=== PATIENT | male | born 1990 | race Caucasian/White ===

== ENCOUNTER 2017-11-30 23:42 | Emergency (ER) | payer SELFPAY ==
[~2017-11-30] VITALS: Ht 190.5 cm; Wt 90.7 kg
[~2017-11-30 23:42] MED LIST: DIBU28OI RC; HYDR1TAB10 PO; HYDR30CR61 RC; LEVO500T59 PO; METR500T PO
--- NOTE | 2017-11-30 23:45 | ED.ADGEN ---
Past History Past Medical History: No Pertinent History, Other Past Surgical History: Tonsillectomy Smoking: Cigarettes Alcohol Use: Occasionally Drug Use: None Adult General Chief Complaint Chief Complaint ".. I was just standing around and got this sharp pain in my chest... it been constant the last hour and half... not had anything like this before..." HPI HPI Patient is a 27 year old male who presents with above hx and complaints of central pleuritic chest pain. Patient states the pain is been constant for the last hour and a half. No radiation. Patient does smoke. No history of prior DVTs or pulmonary embolisms. No history of prior cardiac disorders. There is a strong family history of strokes and MIs any family [age 40. No recent travel. No specific ill contacts. Review of Systems Review of Systems Constitutional: Denies fever or chills [] Eyes: Denies change in visual acuity, redness, or eye pain [] HENT: Denies nasal congestion or sore throat [] Respiratory: Denies cough or shortness of breath [] Cardiovascular: No additional information not addressed in HPI [] GI: Denies abdominal pain, nausea, vomiting, bloody stools or diarrhea [] : Denies dysuria or hematuria [] Musculoskeletal: Denies back pain or joint pain [] Integument: Denies rash or skin lesions [] Neurologic: Denies headache, focal weakness or sensory changes [] Endocrine: Denies polyuria or polydipsia [] All other systems were reviewed and found to be within normal limits, except as documented in this note. Family History Family History Family hx of [place], CVA in 40's Current Medications Current Medications Current Medications Medications (Trade) Dose Ordered Sig/Bret Start Time Stop Time Status Last Admin Dose Admin Aspirin (Children'S Aspirin) 324 mg 1X ONCE 12/01/17 00:15 12/01/17 00:16 DC 12/01/17 00:24 324 MG Enoxaparin Sodium (Lovenox 100mg Syringe) 90 mg 1X ONCE 12/01/17 02:15 12/01/17 02:16 UNV Info (Do NOT chart on this entry -- for MONITORING) 1 each PRN DAILY PRN 12/01/17 02:30 12/01/17 02:56 DC Iohexol (Omnipaque 300 Mg/ml) 75 ml 1X ONCE 12/01/17 02:30 12/01/17 02:31 DC Ketorolac Tromethamine (Toradol 30mg Vial) 30 mg 1X ONCE 12/01/17 00:15 12/01/17 00:16 DC 12/01/17 00:24 30 MG Lactated Ringer's 1,000 ml @ 1,000 mls/hr 1X ONCE 12/01/17 00:15 12/01/17 01:14 DC 12/01/17 00:25 1,000 MLS/HR See senior care meds Allergies Allergies Allergies Coded Allergies Type Severity Reaction Last Updated Verified No Known Drug Allergies 01/23/14 No Physical Exam Physical Exam Constitutional: Well developed, well nourished, mild distress, non-toxic appearance. [] HENT: Normocephalic, atraumatic, bilateral external ears normal, oropharynx moist, no oral exudates, nose normal. []Full mondragon. Eyes: PERRLA, EOMI, conjunctiva normal, no discharge. [] Neck: Normal range of motion, no tenderness, supple, no stridor. [] Cardiovascular:Heart rate regular rhythm, no murmur [] Lungs & Thorax: Bilateral breath sounds equal with few scattered wheezes on auscultation [] Abdomen: Bowel sounds normal, soft, no tenderness, no masses, no pulsatile masses. [] Skin: Warm, dry, no erythema, no rash. [] Back: No tenderness, no CVA tenderness. [] Extremities: No tenderness, no cyanosis, no clubbing, ROM intact, no edema. [] No cording in legs. Neurologic: Alert and oriented X 3, normal motor function, normal sensory function, no focal deficits noted. [] Psychologic: Affect anxious, judgement normal, mood normal. [] Current Patient Data Vital Signs Vital Signs Date Time Temp Pulse Resp B/P (MAP) Pulse Ox O2 Delivery O2 Flow Rate FiO2 12/01/17 02:50 70 19 130/65 (86) 96 Room Air 11/30/17 23:53 98.2 Lab Results Laboratory Tests Test 12/01/17 01:15 12/01/17 01:30 12/01/17 02:50 White Blood Count 7.7 x10^3/uL (4.0-11.0) Red Blood Count 5.43 x10^6/uL (4.30-5.70) Hemoglobin 17.0 g/dL (13.0-17.5) Hematocrit 50.0 % (39.0-53.0) Mean Corpuscular Volume 92 fL (79-100) Mean Corpuscular Hemoglobin 31 pg (25-35) Mean Corpuscular Hemoglobin Concent 34 g/dL (31-37) Red Cell Distribution Width 14.1 % (11.5-14.5) Platelet Count 181 x10^3/uL (140-400) Neutrophils (%) (Auto) 55 % (31-73) Lymphocytes (%) (Auto) 33 % (24-48) Monocytes (%) (Auto) 8 % (0-9) Eosinophils (%) (Auto) 3 % (0-3) Basophils (%) (Auto) 1 % (0-3) Neutrophils # (Auto) 4.3 x10^3uL (1.8-7.7) Lymphocytes # (Auto) 2.6 x10^3/uL (1.0-4.8) Monocytes # (Auto) 0.6 x10^3/uL (0.0-1.1) Eosinophils # (Auto) 0.2 x10^3/uL (0.0-0.7) Basophils # (Auto) 0.1 x10^3/uL (0.0-0.2) Prothrombin Time 10.2 SEC (9.4-11.4) Prothrombin Time INR 1.0 (0.9-1.1) PTT 29 SEC (23-33) D-Dimer (Samantha) 0.57 mg/L (0.00-0.50) H Sodium Level 139 mmol/L (136-145) Potassium Level 3.6 mmol/L (3.5-5.1) Chloride Level 103 mmol/L (98-107) Carbon Dioxide Level 26 mmol/L (21-32) Anion Gap 10 (6-14) Blood Urea Nitrogen 11 mg/dL (8-26) Creatinine 1.0 mg/dL (0.7-1.3) Estimated GFR (Cockcroft-Gault) 89.0 Glucose Level 91 mg/dL (70-99) Calcium Level 9.0 mg/dL (8.5-10.1) Magnesium Level 2.3 mg/dL (1.8-2.4) Total Bilirubin 0.8 mg/dL (0.2-1.0) Direct Bilirubin 0.2 mg/dL (0.0-0.2) Aspartate Amino Transferase (AST) 27 U/L (15-37) Alanine Aminotransferase (ALT) 35 U/L (16-63) Alkaline Phosphatase 53 U/L (46-116) Creatine Kinase 115 U/L (39-308) Troponin I Quantitative < 0.017 ng/mL (0-0.055) < 0.017 ng/mL (0-0.055) NN-Plw-C-Type Natriuretic Peptide 15 pg/mL (0-124) Total Protein 7.3 g/dL (6.4-8.2) Albumin 4.0 g/dL (3.4-5.0) Lipase 154 U/L (73-393) Urine Collection Type Void Urine Color Yellow Urine Clarity Clear Urine pH 5.5 Urine Specific [place] 1.010 Urine Protein Neg (NEG-TRACE) Urine Glucose (UA) Neg mg/dL (NEG) Urine Ketones (Stick) Neg mg/dL (NEG) Urine Blood Neg (NEG) Urine Nitrite Neg (NEG) Urine Bilirubin Neg (NEG) Urine Urobilinogen Dipstick 0.2 mg/dL (0.2 mg/dL) Urine Leukocyte Esterase Neg (NEG) Urine RBC 0 /HPF (0-2) Urine WBC 0 /HPF (0-4) Urine Squamous Epithelial Cells Few /LPF Urine Transitional Epithelial Cells Occ /LPF Urine Bacteria Few /HPF (0-FEW) Urine Mucus Slight /LPF Urine Opiates Screen Neg (NEG) Urine Methadone Screen Neg (NEG) Urine Barbiturates Neg (NEG) Urine Phencyclidine Screen Neg (NEG) Urine Amphetamine/Methamphetamine Neg (NEG) Urine Benzodiazepines Screen Neg (NEG) Urine Cocaine Screen Neg (NEG) Urine Cannabinoids Screen Neg (NEG) Urine Ethyl Alcohol Pos (NEG) EKG EKG My interpretation of EKG shows a sinus 76, no acute morphology.[]at 23:48 Repeat EKG at 02:46 sinus rhythm at 65. No acute morphology. No acute interval change. Radiology/Procedures Radiology/Procedures My interpretation of CXR shows on acute cardiopul. changes. [] Course & Med Decision Making Course & Med Decision Making Pertinent Labs and Imaging studies reviewed. (See chart for details) Pt. refuses further work up at this time. Exhibits [facility] capacity. Aware he may have blood clot or Pul. embolism. Pt. instructed to return at any time to complete his evaluation. Return if any concerns. Follow up with primary. STOP SMOKING. Begged patient to reconsider his desire to leave before completed work up. Pt. does seem aware of risks. Pt. encouraged to follow up. Review labs with primary. Return any time. [] Final Impression Final Impression 1. Chest Pain 2. Tobacco use[] 3. Pleurisy 4. Elevated D-dimer Dragon Disclaimer Dragon Disclaimer This electronic medical record was generated, in whole or in part, using a voice recognition dictation system. MICHAELA RUSSO MD Nov 30, 2017 23:46
--- NOTE | 2017-11-30 23:51 | EKG ---
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
[2017-12-01] MEDS ORDERED: ENOXAPARIN ** NOTE DOSE ** SYRINGE SQ ONE ×2 (00:15→02:15)
[2017-12-01] MEDS ORDERED: KETOROLAC 30 MG/ML VIAL. IV ONE (00:15)
[2017-12-01] MEDS ORDERED: IV RINGERS SOLUTION,LACTATED 1,000 ML IV ONE (00:15)
[2017-12-01] MEDS ORDERED: ASPIRIN 81 MG TAB.CHEW PO ONE (00:15)
[2017-12-01] MEDS ORDERED: IV RINGERS SOLUTION,LACTATED 1,000 ML IV SCH (00:15)
[2017-12-01 01:33] LABS: BASO # 0.1 x10^3/uL (0.0-0.2); BASO % 1 % (0-3); EOS # 0.2 x10^3/uL (0.0-0.7); EOS % 3 % (0-3); LYMPH # 2.6 x10^3/uL (1.0-4.8); LYMPH % 33 % (24-48); MEAN CORPUSCULAR HEMOGLOBIN 31 pg (25-35); MEAN CORPUSCULAR HGB CONC 34 g/dL (31-37); MEAN CORPUSCULAR VOLUME 92 fL (79-100); MONO # 0.6 x10^3/uL (0.0-1.1); MONO % 8 % (0-9); NEUT # 4.3 x10^3uL (1.8-7.7); NEUT % 55 % (31-73); PLATELET COUNT 181 x10^3/uL (140-400); RED BLOOD COUNT 5.43 x10^6/uL (4.30-5.70); RED CELL DISTRIBUTION WIDTH 14.1 % (11.5-14.5); WHITE BLOOD COUNT 7.7 x10^3/uL (4.0-11.0)
[2017-12-01 01:49] LABS: DIRECT BILIRUBIN 0.2 mg/dL (0.0-0.2); MAGNESIUM 2.3 mg/dL (1.8-2.4); POTASSIUM 3.6 mmol/L (3.5-5.1); TOTAL BILIRUBIN 0.8 mg/dL (0.2-1.0); TOTAL PROTEIN 7.3 g/dL (6.4-8.2)
[2017-12-01 02:16] LABS: BACTERIA,URINE FEW /HPF (0-FEW); BILIRUBIN,URINE NEG (NEG); CLARITY,URINE CLEAR; COLOR,URINE YELLOW; GLUCOSE,URINE NEG (NEG); NITRITE,URINE NEG (NEG); RBC,URINE 0 /HPF (0-2); SQUAMOUS EPITHELIAL CELL,UR FEW /LPF; UROBILINOGEN,URINE 0.2 mg/dL (0.2 mg/dL); WBC,URINE 0 /HPF (0-4)
[2017-12-01 02:20] LABS: AMPHETAMINE/METHAMPHETAMINE NEG (NEG); BARBITURATES NEG (NEG); BENZODIAZEPINES NEG (NEG); CANNABINOIDS NEG (NEG); COCAINE NEG (NEG); METHADONE NEG (NEG); OPIATES NEG (NEG); PHENCYCLIDINE NEG (NEG)
[2017-12-01] MEDS ORDERED: IOHEXOL 300 MG/ML 75 ML VIAL. IV ONE (02:30)
[2017-12-01] MEDS ORDERED: CONTRAST GIVEN MC PRN (02:30)
[2017-12-01 02:50] VITALS: BP 130/65
--- NOTE | 2017-12-01 03:01 | EKG ---
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
--- NOTE | 2017-12-01 08:29 | RAD ---
EXAM: CHEST 1 VIEW. HISTORY: Chest pain, shortness of breath. COMPARISON: September 24, 2010. FINDINGS: A frontal view of the chest is obtained. There are no confluent infiltrates. There is no pneumothorax or pleural effusion. The heart is not enlarged. Postsurgical changes are noted at the right glenoid. IMPRESSION: 1. No confluent infiltrates. Electronically signed by: Filiberto Lamar MD (12/01/2017 8:26 AM) [facility]
== END 2017-12-01 02:55 | disposition left against medical advice (07) ==
LOC: ER 23:42
DX: R09.1 Pleurisy (principal); R79.1 Abnormal coagulation profile; F17.210 Nicotine dependence, cigarettes, uncomplicated
CPT/HCPCS: 36415; 71046; 80048; 80076; 80307; 81001; 82550; 83690; 83735; 83880; 84443; 84484; 85025; 85379; 85610; 85730; 93005; 96372; 96374; 99285; J1650; J1885; J7120; G0479